=== PATIENT | female | born 1980 | race Caucasian/White ===

== ENCOUNTER 2016-11-29 07:13 | Outpatient (CLI) | payer OTHER | END 2016-11-29 23:59 | DX: Z11.3 Encounter for screening for infections with a predominantly sexual mode of transmission (principal) ==

== ENCOUNTER 2016-12-20 09:59 | Outpatient (CLI) | payer OTHER | END 2016-12-20 10:00 | disposition home or self-care (01) | DX: Z36 Encounter for antenatal screening of mother (principal) ==

== ENCOUNTER 2017-01-24 10:05 | Outpatient (CLI) | payer OTHER ==
[2017-01-31 11:22] LABS: TEST RESULT REPORT (())
== END 2017-01-24 10:06 | disposition home or self-care (01) ==
LOC: LAB 10:05
PROVIDERS: ATTEND Obstetrics & Gynecology
DX: Z36 Encounter for antenatal screening of mother (principal)
CPT/HCPCS: 81511; 81599

== ENCOUNTER 2017-04-05 08:38 | Outpatient (CLI) | payer OTHER ==
[2017-04-05 12:46] LABS: HGB - HEMOGLOBIN 11.7 g/dL (12.0-16.0); MEAN CORPUSCULAR HEMOGLOBIN 28.1 pg (27.0-31.0); MEAN CORPUSCULAR HGB CONC 33.4 g/dL (32.0-36.0); MEAN CORPUSCULAR VOLUME 83.9 fL (81.0-99.0); MEAN PLATELET VOLUME 8.2 fL (7.9-10.8); RED BLOOD COUNT 4.17 10^6/uL (4.20-5.40); RED CELL DISTRIBUTION WIDTH 13.9 % (12.0-15.0); WHITE BLOOD COUNT 8.8 x10^3/uL (4.8-10.8)
== END 2017-04-05 08:39 | disposition home or self-care (01) ==
LOC: LAB.WCP 08:38
PROVIDERS: ATTEND Obstetrics & Gynecology
DX: Z36 Encounter for antenatal screening of mother (principal)
CPT/HCPCS: 82950; 86850

== ENCOUNTER 2017-04-21 12:50 | Outpatient (CLI) | payer OTHER ==
--- NOTE | 2017-04-22 09:46 | Ultrasound Report ---
OB FOLLOWUP: 04/21/2017 CLINICAL INDICATION: Size greater than dates. TECHNIQUE: Real-time scanning was performed with event representative static images obtained. LAST MENSTRUAL PERIOD 10/02/2016 Clinical Age 28 weeks 5 days US Age 31 weeks 0 days EFW [place] 1465 g EFW% [place] 68% Heart Rate 138 bpm EDC 07/09/2017 US EDC 06/23/2017 BPD [place] 32 weeks 3 days; Mean mm 80.7 HC [place] 32 weeks 5 days; Mean mm 295.5 AC [place] 30 weeks 0 days; Mean mm 258.7 FL [place] 28 weeks 1 day; Mean mm 52.9 Presentation cephalic Placental Location anterior Cervical Length 27.1 cm Amniotic Fluid 3.3 cm There is a single viable intrauterine gestation, in cephalic presentation. heart rate is 138 BPM. The placenta is anterior, without evidence of previa. By size, the fetus measures 31 weeks 0 days (28 weeks 5 days by LMP dating). There is polyhydramnios present, with an GIO of 27.1. No free fluid or adnexal lesion is appreciated. IMPRESSION: SINGLE VIABLE INTRAUTERINE GESTATION, MEASURING 2 WEEKS 2 DAYS LARGER THAN EXPECTED BY LMP DATING. POLYHYDRAMNIOS. MTDD
== END 2017-04-21 12:51 | disposition home or self-care (01) ==
LOC: DI 12:50
PROVIDERS: ATTEND Obstetrics & Gynecology
DX: O36.63X0 Maternal care for excessive fetal growth, third trimester, not applicable or unspecified (principal); O40.3XX0 Polyhydramnios, third trimester, not applicable or unspecified
CPT/HCPCS: 76816

== ENCOUNTER 2017-05-23 10:59 | Outpatient (CLI) | payer OTHER ==
[2017-05-23 11:37] LABS: BASOPHILS % (AUTO) 0.3 %; EOSINOPHILS # (AUTO) 0.2 10^3/uL (0.0-0.7); EOSINOPHILS % (AUTO) 2.5 %; HCT - HEMATOCRIT 32.2 % (37.0-47.0); HGB - HEMOGLOBIN 10.7 g/dL (12.0-16.0); LYMPHOCYTES # (AUTO) 1.9 10^3/uL (1.5-3.5); LYMPHOCYTES % (AUTO) 21.5 %; MEAN CORPUSCULAR HEMOGLOBIN 26.9 pg (27.0-31.0); MEAN CORPUSCULAR HGB CONC 33.2 g/dL (32.0-36.0); MEAN CORPUSCULAR VOLUME 81.1 fL (81.0-99.0); MEAN PLATELET VOLUME 7.6 fL (7.9-10.8); MONOCYTES # (AUTO) 0.6 10^3/uL (0.0-1.0); NEUTROPHILS # (AUTO) 6.1 10^3/uL (1.5-6.6); NEUTROPHILS % (AUTO) 68.7 %; RED BLOOD COUNT 3.97 10^6/uL (4.20-5.40); RED CELL DISTRIBUTION WIDTH 13.3 % (12.0-15.0); UNCORRECTED WHITE BLOOD COUNT 8.9 x10^3/uL; WHITE BLOOD COUNT 8.9 x10^3/uL (4.8-10.8)
[2017-05-23 11:56] LABS: CREATININE 0.6 mg/dL (0.4-1.0); URIC ACID 4.4 mg/dL (2.6-7.2)
[2017-05-23 12:26] VITALS: BP 128/76
== END 2017-05-23 12:25 | disposition home or self-care (01) ==
LOC: WFO 10:59 → FBP 11:00 → WFO 12:25
PROVIDERS: ATTEND Obstetrics & Gynecology
DX: O10.913 Unspecified pre-existing hypertension complicating pregnancy, third trimester (principal); Z3A.33 33 weeks gestation of pregnancy
CPT/HCPCS: 36415; 59025; 82565; 82570; 83615; 84156; 84450; 84550; 85025; 85384

== ENCOUNTER 2017-05-30 15:47 | Outpatient (CLI) | payer OTHER ==
[2017-05-30 16:02] VITALS: BP 134/75
== END 2017-05-30 16:25 | disposition home or self-care (01) ==
LOC: WFO 15:47 → FBP 15:47 → WFO 16:25
PROVIDERS: ATTEND Obstetrics & Gynecology
DX: O40.3XX0 Polyhydramnios, third trimester, not applicable or unspecified (principal); Z3A.34 34 weeks gestation of pregnancy
CPT/HCPCS: 59025

== ENCOUNTER 2017-06-06 09:28 | Outpatient (CLI) | payer OTHER ==
[2017-06-06 09:55] VITALS: BP 122/70
[2017-06-06 11:02] LABS: BASOPHILS % (AUTO) 0.4 %; EOSINOPHILS # (AUTO) 0.1 10^3/uL (0.0-0.7); EOSINOPHILS % (AUTO) 1.7 %; HCT - HEMATOCRIT 36.8 % (37.0-47.0); HGB - HEMOGLOBIN 11.8 g/dL (12.0-16.0); LYMPHOCYTES # (AUTO) 1.6 10^3/uL (1.5-3.5); LYMPHOCYTES % (AUTO) 20.8 %; MEAN CORPUSCULAR HEMOGLOBIN 25.6 pg (27.0-31.0); MEAN CORPUSCULAR VOLUME 79.9 fL (81.0-99.0); MEAN PLATELET VOLUME 7.6 fL (7.9-10.8); MONOCYTES # (AUTO) 0.4 10^3/uL (0.0-1.0); MONOCYTES % (AUTO) 4.9 %; NEUTROPHILS # (AUTO) 5.6 10^3/uL (1.5-6.6); NEUTROPHILS % (AUTO) 72.2 %; NUCLEATED RED BLOOD CELLS AUTO 0.1 /100WBC; RED BLOOD COUNT 4.61 10^6/uL (4.20-5.40); RED CELL DISTRIBUTION WIDTH 13.9 % (12.0-15.0); UNCORRECTED WHITE BLOOD COUNT 7.8 x10^3/uL; WHITE BLOOD COUNT 7.8 x10^3/uL (4.8-10.8)
[2017-06-06 11:12] LABS: ALBUMIN/GLOBULIN RATIO 0.7 (1.0-2.2); BILIRUBIN,TOTAL 0.5 mg/dL (0.2-1.0); CALCIUM 8.8 mg/dL (8.5-10.3); CREATININE 0.8 mg/dL (0.4-1.0); POTASSIUM 3.8 mmol/L (3.5-5.0); TOTAL PROTEIN 6.4 g/dL (6.7-8.2); URIC ACID 6.2 mg/dL (2.6-7.2)
[2017-06-06] MEDS ORDERED: ONDANSETRON ODT 4 MG TABLET TL PRN (12:54)
--- NOTE | 2017-06-08 12:26 | Ultrasound Report ---
RIGHT UPPER QUADRANT ULTRASOUND: 06/06/2017 COMPARISON: None. INDICATION: Right upper quadrant pain. TECHNIQUE: Sonographic evaluation of the right upper quadrant--upper abdomen was performed. FINDINGS: The liver appears normal in size and contour without masses. The liver appears normal in echogenicity. Portal venous flow is directed toward the liver. There is no ascites. The common duct is non-dilated with the common duct measuring 3 mm. No gallstones. No gallbladder wall thickening or surrounding fluid. Negative Wells sign. The right kidney is grossly unremarkable. IMPRESSION: NEGATIVE RIGHT UPPER QUADRANT ULTRASOUND. JOB #: [id number] EXT JOB #:[id number]
== END 2017-06-06 15:30 | disposition home or self-care (01) ==
LOC: WFO 09:28 → FBP 09:30 → WFO 15:30
PROVIDERS: ATTEND Obstetrics & Gynecology
DX: O40.3XX0 Polyhydramnios, third trimester, not applicable or unspecified (principal); Z3A.35 35 weeks gestation of pregnancy
CPT/HCPCS: 36415; 59025; 76705; 80053; 82570; 83615; 84156; 84450; 84550; 85025; 85384; Q0162; 99213

== ENCOUNTER 2017-06-15 11:49 | Outpatient (CLI) | payer OTHER | END 2017-06-15 11:50 | disposition home or self-care (01) | LOC: LAB.R 11:49 | PROVIDERS: ATTEND Obstetrics & Gynecology | DX: Z36.9 Encounter for antenatal screening, unspecified (principal) | CPT/HCPCS: 87081 ==

== ENCOUNTER 2017-06-29 15:55 | Inpatient (IN) | payer OTHER ==
[2017-06-29 16:26] LABS: BASOPHILS # (AUTO) 0.1 10^3/uL (0.0-0.1); BASOPHILS % (AUTO) 0.6 %; EOSINOPHILS # (AUTO) 0.2 10^3/uL (0.0-0.7); EOSINOPHILS % (AUTO) 2.3 %; HCT - HEMATOCRIT 32.9 % (37.0-47.0); HGB - HEMOGLOBIN 10.3 g/dL (12.0-16.0); MEAN CORPUSCULAR HEMOGLOBIN 24.5 pg (27.0-31.0); MEAN CORPUSCULAR HGB CONC 31.4 g/dL (32.0-36.0); MEAN PLATELET VOLUME 7.9 fL (7.9-10.8); MONOCYTES # (AUTO) 0.6 10^3/uL (0.0-1.0); MONOCYTES % (AUTO) 5.5 %; NEUTROPHILS # (AUTO) 7.5 10^3/uL (1.5-6.6); NEUTROPHILS % (AUTO) 72.6 %; NUCLEATED RED BLOOD CELLS AUTO 0.1 /100WBC; RED BLOOD COUNT 4.22 10^6/uL (4.20-5.40); RED CELL DISTRIBUTION WIDTH 14.7 % (12.0-15.0); UNCORRECTED WHITE BLOOD COUNT 10.3 x10^3/uL; WHITE BLOOD COUNT 10.3 x10^3/uL (4.8-10.8)
[2017-06-29 16:40] LABS: URIC ACID 6.1 mg/dL (2.6-7.2)
[2017-06-29 17:08] LABS: CREATININE 0.9 mg/dL (0.4-1.0)
[2017-06-29] MEDS ORDERED: SODIUM CHLORIDE FLUSH 0.9% 10 ML SYRINGE IVP ONE ×2 (17:55→18:23)
[2017-06-29] MEDS ORDERED: DINOPROSTONE 10 MG SUPP VG SCH (18:19)
[2017-06-29] MEDS ORDERED: FERRIC GLUCONATE 125 MG in SODIUM CHLORIDE 0.9% 100ML 100 ML IV SCH (19:00)
[2017-06-29] MEDS: LACTATED RINGERS 1,000 ML IV SCH (19:33)
--- NOTE | 2017-06-29 21:48 | HISTORY & PHYSICAL EXAMINATION ---
DATE OF ADMISSION: 06/29/2017 IDENTIFICATION: A 37-year-old G2, P1-0-0-1 with a 38 and 5/7 week intrauterine , EDC is 07/09/2017, consistent with 8-week ultrasound. HISTORY OF PRESENT ILLNESS: The patient presents today to [facility] for a blood pressure check. The patient has been having gestational hypertension and has resolved polyhydramnios that started and resolved in the third trimester. In any event, the patient's blood pressure here in labor and delivery is consistent with an elevated blood pressure in the office. Here in Labor and Delivery they are 145/91, 146/90, 144/90, 142/88, and 138/96. Her laboratories show platelets of 266, creatinine 0.9, AST of 20, and a urine protein creatinine ratio was 0.2. In the face of gestational hypertension with worsening renal tests, I believe it is at this point in time that patient should be delivered for preeclampsia. I discussed with the patient the risks, benefits, alternatives, indications and expectations of cervical ripening and later induction of labor. After all the questions answered to her satisfaction, she verbalized that I proceed with cervical ripening with induction of labor and consent forms have been signed. The patient states that the baby, which is a girl with an anticipated name of Magdalena is moving well and patient denies any vaginal bleeding or loss of fluid. She is experiencing some mild contractions. She was seen at the clinic yesterday with Dr. Cruz who checked her cervix. Her cervix at the time was 1 cm dilated, 25% effaced, and -1 station. NST today is reactive and category 1. The patient is not showing any appreciable contractions on tocometry. She denies any significant headaches, right upper quadrant tenderness, or visual changes. She is accompanied today by her , Max. PAST MEDICAL HISTORY: None. She denies any chronic hypertension, diabetes, or thyroid disorders. PAST SURGICAL HISTORY 1. Appendectomy in 1991. 2. Breast augmentation on 03/17/2016. ALLERGIES: NO KNOWN DRUG ALLERGIES. Her pharmacy of choice is [facility] in [place]. SOCIAL HISTORY: She denies any tobacco, alcohol, or illicit drug use. Her is Max and the patient has a daughter named Claude. This is a female fetus with anticipated name is Magdalena. PAST OBSTETRICAL HISTORY: One term vaginal delivery at 39 weeks' gestation with induction of labor secondary to hypertension. This baby is IVF. This has been remarkable for polyhydramnios at about 29 weeks' gestation. She had an ultrasound ordered for size greater than dates and her amniotic fluid index was 27 cm at that time. There has been spontaneous resolution of her amniotic fluid index. At 37 weeks' gestation, she was found to have an amniotic fluid index of 13.01 cm. The patient has had elevated blood pressures as well during this . At their worst blood pressures were in the 150s over 80s. The patient did have a normal echocardiogram. This was performed secondary to her daughter, Claude having a partial AVSD that was diagnosed at her second week of life. The baby did require surgical repair. PAST GYNECOLOGIC HISTORY: She denies any abnormal Pap smears or sexually transmitted diseases. FAMILY HISTORY: She denies any female carcinoma. REVIEW OF SYSTEMS: Negative unless otherwise stated. She denies any nausea, vomiting, fevers, chills, diarrhea, or constipation. OBJECTIVE VITAL SIGNS: Blood pressure is 138/96, heart rate 93. GENERAL: The patient is a well-developed, well-nourished female in no apparent distress. She is alert and oriented x3. The patient is very pleasant and easy to speak to. HEENT: Within normal limits, the patient is a red head. CARDIOVASCULAR: Rate is regular, no murmurs or rubs. PULMONARY: Lungs clear to auscultation bilaterally. ABDOMEN: Gravid, nontender. Fundal height from yesterday's visit at 40 cm at 38 weeks' gestation. laboratories reveal she is negative for chlamydia and gonorrhea. Her Pap smear was also negative on 11/29/2016. Blood type is A positive with a negative antibody screen. HIV is negative, as well as RPR, hepatitis, and hepatitis B surface antigen negative. She is immune to rubella and her quad screen is normal. Her 1 hour GTT is 116. cfDNA was negative. Placenta was noted to be anterior. GBS is negative. Laboratory results today on 06/29/2017 show a white count of 10.3, hemoglobin and hematocrit of 10.3 and 32.9, platelets 266. Uric acid 6.1, creatinine 0.9, GFR is 70, AST 20. Urine protein to creatinine ratio 0.2. Nonstress test is reactive in category 1. There are no decelerations. No contractions are noted. ASSESSMENT 1. A 37-year-old G2, P1-0-0-1 with a 38 and 5/7 week intrauterine . 2. Chronic hypertension with superimposed preeclampsia. 3. Cervix remote from delivery. PLAN 1. We will proceed to cervical ripening with Cervidil overnight and then hopefully convert to Pitocin tomorrow morning. 2. Expect spontaneous vaginal delivery. 3. Epidural p.r.n. 4. We will give the patient IV ferrous gluconate after delivery. JOB #: [id number] EXT JOB #:[id number] MTDD
[2017-06-29] MEDS: ZOLPIDEM 5 MG TABLET PO PRN (22:23)
[2017-06-30] MEDS: fentaNYL 100 MCG/2 ML VIAL IVP PRN ×2 (05:12→18:57)
[2017-06-30] MEDS: SODIUM CHLORIDE FLUSH 0.9% 10 ML SYRINGE IVP SCH ×3 (05:14→17:23)
[2017-06-30] MEDS ORDERED: ONDANSETRON 4 MG/2 ML VIAL ONE (06:25)
--- NOTE | 2017-06-30 08:20 | PROVIDER PROGRESS NOTE ---
Labor Progress Note - Uterine Monitoring Uterine Monitoring Mode: positive: External toco Contraction Frequency (min/apart): Max Q2 Contraction Intensity: positive: Moderate to strong Uterine Resting Tone: positive: Soft - Monitoring Monitor Mode: positive: External ultrasound Heart Rate Variability: positive: Moderate (6-25 bmp) Accelerations: positive: Present, 15x15 Decelerations: positive: None Strip Review: positive: Category I - Vaginal Exam Dilation (in cm): 1 Effacement (%): 70 Station: -1 - Labor Progress Note Labor Progress Note/Additional Text: 37 yo with a 38w5d IUP Improved cervical change with cervidil overnight Chronic hypertension with superimposed preeclampsia Epidural PRN Zofran PRN Expect S/p Iron transfusion 06/29/2017 for iron deficiency anemia Start pitocin
[2017-06-30] MEDS ORDERED: OXYTOCIN/SODIUM CHLORIDE 250 ML IV SCH (09:00)
--- NOTE | 2017-06-30 12:49 | PROVIDER PROGRESS NOTE ---
Labor Progress Note - Uterine Monitoring Uterine Monitoring Mode: positive: External toco Contraction Frequency (min/apart): Q4 Contraction Intensity: positive: Moderate to strong Uterine Resting Tone: positive: Soft - Monitoring Monitor Mode: positive: External ultrasound Heart Rate Baseline: 130 Heart Rate Variability: positive: Moderate (6-25 bmp) Accelerations: positive: Present, 15x15 Decelerations: positive: None Strip Review: positive: Category I - Labor Progress Note Labor Progress Note/Additional Text: 37 yo with a 38w5d IUP Chronic hypertension with superimposed pre-eclampsia Continue pitocin (8 milliunits/min) Epidural then AROM Expect
[2017-06-30] MEDS: LACTATED RINGERS 1,000 ML IV SCH ×2 (14:09→18:34)
[2017-06-30] MEDS ORDERED: miSOPROStol 100 MCG TABLET BC SCH (15:00)
--- NOTE | 2017-06-30 15:11 | PROVIDER PROGRESS NOTE ---
Labor Progress Note - Uterine Monitoring Contraction Frequency (min/apart): Q4 Contraction Intensity: positive: Moderate to strong Uterine Resting Tone: positive: Soft - Monitoring Monitor Mode: positive: External ultrasound Heart Rate Variability: positive: Moderate (6-25 bmp) Accelerations: positive: Present, 15x15 Decelerations: positive: None Strip Review: positive: Category I - Vaginal Exam Dilation (in cm): 1 Effacement (%): 50 Cervical Position: Posterior - Labor Progress Note Labor Progress Note/Additional Text: No significant change despite pitocin Will give 1 dose of cytotec Stable chronic hypertension with superimposed preeclampsia
[2017-06-30] MEDS: ONDANSETRON 4 MG/2 ML VIAL IVP PRN (17:24)
--- NOTE | 2017-06-30 17:57 | PROVIDER PROGRESS NOTE ---
Labor Progress Note - Uterine Monitoring Uterine Monitoring Mode: positive: External toco Contraction Frequency (min/apart): Q4 Contraction Intensity: positive: Moderate to strong Uterine Resting Tone: positive: Soft - Monitoring Monitor Mode: positive: External ultrasound Heart Rate Variability: positive: Moderate (6-25 bmp) Accelerations: positive: Present, 15x15 Decelerations: positive: None Strip Review: positive: Category I - Labor Progress Note Labor Progress Note/Additional Text: 37 yo with a 38w5d IUP Chronic HTN with superimposed pre-eclampsia, stable Recheck cervix at 19:30 when cytotec done Will decide on next step after cervical exam Expect
[2017-06-30] MEDS: SODIUM CHLORIDE FLUSH 0.9% 10 ML SYRINGE IVP PRN (19:05)
[2017-06-30] MEDS ORDERED: DINOPROSTONE 10 MG SUPP VG SCH (20:07)
--- NOTE | 2017-06-30 20:30 | PROVIDER PROGRESS NOTE ---
Labor Progress Note - Uterine Monitoring Uterine Monitoring Mode: positive: External toco Contraction Frequency (min/apart): Difficult to discern Contraction Intensity: positive: Moderate Uterine Resting Tone: positive: Soft - Monitoring Monitor Mode: positive: External ultrasound Heart Rate Baseline: 110-120's Heart Rate Variability: positive: Moderate (6-25 bmp) Accelerations: positive: Present, 15x15 Decelerations: positive: None Strip Review: positive: Category I - Vaginal Exam Dilation (in cm): 1 (RN exam) Effacement (%): Thick Station: -3 Cervical Position: Posterior - Labor Progress Note Labor Progress Note/Additional Text: 37 yo with a 38w5d IUP Stable chronic HTN with superimposed pre-eclampsia Cervix remote from delivery. Patient frustrated that she hasn't progressed. Reassured patient that both she and the baby are doing well. Will have to be patient and keep on ripening the cervix. Will give cervidil overnight again. Patient OK to go in the jacuzzi prior to dose of cervidil tonight. Epidural PRN Expect
[2017-06-30 21:30] VITALS: BP 110/63
[2017-06-30] MEDS: ZOLPIDEM 5 MG TABLET PO PRN (21:37)
[2017-06-30] MEDS: ACETAMINOPHEN 325 MG TABLET PO PRN (21:37)
[2017-07-01] MEDS: ACETAMINOPHEN 325 MG TABLET PO PRN (02:23)
[2017-07-01] MEDS: SODIUM CHLORIDE FLUSH 0.9% 10 ML SYRINGE IVP SCH ×4 (04:41→11:51)
[2017-07-01] MEDS: ONDANSETRON 4 MG/2 ML VIAL IVP PRN ×3 (05:12→17:03)
[2017-07-01] MEDS: fentaNYL 100 MCG/2 ML VIAL IVP PRN ×4 (06:04→15:07)
[2017-07-01] MEDS: SODIUM CHLORIDE FLUSH 0.9% 10 ML SYRINGE IVP PRN ×4 (09:54→17:06)
--- NOTE | 2017-07-01 11:38 | PROVIDER PROGRESS NOTE ---
Labor Progress Note - Uterine Monitoring Uterine Monitoring Mode: positive: External toco Contraction Frequency (min/apart): few Contraction Intensity: positive: Mild Uterine Resting Tone: positive: Soft - Monitoring Monitor Mode: positive: External ultrasound Heart Rate Baseline: 140 Heart Rate Variability: positive: Moderate (6-25 bmp) Accelerations: positive: Present, 15x15 Decelerations: positive: None Strip Review: positive: Category I - Vaginal Exam Dilation (in cm): 1 Effacement (%): 50 Station: -1 Cervical Position: Posterior (Patient discussed with Dr Rivera. Pt has recieved cytotec, Pitocin, Cervidel with minimal change. Discussed with the patient. Pt relaits that cx responded to ross bulb last time. was very painful. desires repeat bulb dilitation. Plan Ross bulp pit/epidural, then AROM.)
[2017-07-01] MEDS: LACTATED RINGERS 1,000 ML IV SCH (12:04)
--- NOTE | 2017-07-01 16:10 | PROVIDER PROGRESS NOTE ---
Labor Progress Note - Uterine Monitoring Uterine Monitoring Mode: positive: External toco Contraction Frequency (min/apart): 8-10 Contraction Intensity: positive: Mild Uterine Resting Tone: positive: Soft - Monitoring Monitor Mode: positive: External ultrasound Heart Rate Baseline: 120 Heart Rate Variability: positive: Moderate (6-25 bmp) Accelerations: positive: Present, 15x15 Decelerations: positive: None Strip Review: positive: Category I - Vaginal Exam Dilation (in cm): 3 Effacement (%): long Station: Ballotable Cervical Position: Posterior (Luis out. Head out of the pelvis. Cervix not responding. folye may be pushing the head up. reviewed with the ptSeema Alatorre for relaxation. Cervdel tonight. Indusction in the AM if favorable. if not rest and retutn Tuesday)
[2017-07-01] MEDS ORDERED: DINOPROSTONE 10 MG SUPP VG ONE (16:17)
[2017-07-01] MEDS: ZOLPIDEM 5 MG TABLET PO PRN (20:50)
[2017-07-02] MEDS: SODIUM CHLORIDE FLUSH 0.9% 10 ML SYRINGE IVP PRN (00:35)
[2017-07-02] MEDS: ONDANSETRON 4 MG/2 ML VIAL IVP PRN (01:02)
[2017-07-02] MEDS: LACTATED RINGERS 1,000 ML IV SCH (01:07)
[2017-07-02] MEDS ORDERED: PROMETHAZINE INJ 25 MG in SODIUM CHLORIDE 0.9% 50 ML IV PRN (01:16)
--- NOTE | 2017-07-02 01:26 | PROVIDER PROGRESS NOTE ---
Labor Progress Note - Uterine Monitoring Uterine Monitoring Mode: positive: External toco Contraction Frequency (min/apart): 10 Contraction Intensity: positive: Mild to moderate Uterine Resting Tone: positive: Soft - Monitoring Monitor Mode: positive: External ultrasound Heart Rate Baseline: 120 Heart Rate Variability: positive: Minimal (0-5 bpm) Accelerations: positive: Present, 15x15 Decelerations: positive: None Strip Review: positive: Category I - Labor Progress Note Labor Progress Note/Additional Text: Pt is having difficulty wit emotional liability. she hasn't had a good sleep for the last 3 days. BP has been 120/80's. DTR 3+ . No JACOBS. Removed cerevidel. will allow Pt to sleep
[2017-07-02] MEDS ORDERED: PROMETHAZINE 25 MG/1 ML VIAL ONE (01:38)
[2017-07-02 06:17] LABS: BASOPHILS % (AUTO) 0.4 %; EOSINOPHILS # (AUTO) 0.1 10^3/uL (0.0-0.7); HGB - HEMOGLOBIN 8.9 g/dL (12.0-16.0); LYMPHOCYTES # (AUTO) 1.7 10^3/uL (1.5-3.5); LYMPHOCYTES % (AUTO) 23.5 %; MEAN CORPUSCULAR HEMOGLOBIN 24.8 pg (27.0-31.0); MEAN CORPUSCULAR HGB CONC 31.6 g/dL (32.0-36.0); MEAN CORPUSCULAR VOLUME 78.4 fL (81.0-99.0); MONOCYTES # (AUTO) 0.5 10^3/uL (0.0-1.0); MONOCYTES % (AUTO) 6.4 %; NEUTROPHILS # (AUTO) 4.9 10^3/uL (1.5-6.6); NEUTROPHILS % (AUTO) 67.7 %; NUCLEATED RED BLOOD CELLS AUTO 0.2 /100WBC; RED BLOOD COUNT 3.57 10^6/uL (4.20-5.40); RED CELL DISTRIBUTION WIDTH 14.6 % (12.0-15.0); UNCORRECTED WHITE BLOOD COUNT 7.2 x10^3/uL; WHITE BLOOD COUNT 7.2 x10^3/uL (4.8-10.8)
[2017-07-02 06:35] LABS: CREATININE 0.9 mg/dL (0.4-1.0); GFR - MDRD 70 (>89); URIC ACID 7.2 mg/dL (2.6-7.2)
--- NOTE | 2017-07-02 08:34 | PROVIDER PROGRESS NOTE ---
Labor Progress Note - Uterine Monitoring Uterine Monitoring Mode: positive: External toco Contraction Frequency (min/apart): 10 Contraction Intensity: positive: Mild Uterine Resting Tone: positive: Soft Other Uterine Monitoring: Uterus is nontender - Monitoring Monitor Mode: positive: External ultrasound Heart Rate Baseline: 140 Heart Rate Variability: positive: Moderate (6-25 bmp) Accelerations: positive: Present, 15x15 Decelerations: positive: None Strip Review: positive: Category I - Vaginal Exam Dilation (in cm): 3 Effacement (%): 25 Station: Ballotable Cervical Position: Posterior - Labor Progress Note Labor Progress Note/Additional Text: Pt rested some last PM. spirits improved.
--- NOTE | 2017-07-02 08:37 | PROVIDER PROGRESS NOTE ---
Subjective - Prog Note Date Prog Note Date: 07/02/17 Prog Note Time: 08:35 - Subjective Pt reports feeling: Improved (Pt denysHA or scotoma. Notes good FM. Slept last night folllowing phenergan.) Objective - Vital Signs/Intake & Output Reviewed Vital Signs: Yes Vital Signs: BP 120-30/70-80. Intake & Output: Intake & Output 06/29/17 06/30/17 07/01/17 07/02/17 23:59 23:59 23:59 23:59 Intake Total 488.324 2178 1000 651 Output Total 1150 900 450 Balance 376.667 350 100 201 - Objective General Appearance: positive: No acute distress, Alert Respiratory: positive: Chest non-tender, No respiratory distress, Breath sounds nml Cardiovascular: positive: Regular rate & rhythm, No murmur Abdomen: positive: Non-tender, No organomegaly, Nml bowel sounds, Mass (uterus) Back: negative: CVA tenderness (R), CVA tenderness (L) Skin: positive: Color nml, No rash, Warm Extremities: positive: Pedal edema (3+). negative: Calf tenderness, Joint swelling, Crescencio's sign/cords Neurologic/Psychiatric: positive: Oriented x3, CN's nml (2-12), Motor nml Reflexes: Knee (R): 3+ (no Clonus), Knee (L): 3+ (no Clonus) - Lab Results Fish Bones: 07/02/17 06:00 07/02/17 06:00 Other Labs: Lab Results x24hrs 07/02/17 07/02/17 07/02/17 Range/Units 06:00 06:00 06:00 WBC (4.8-10.8) x10^3/uL RBC (4.20-5.40) 10^6/uL Hgb (12.0-16.0) g/dL Hct (37.0-47.0) % MCV (81.0-99.0) fL MCH (27.0-31.0) pg MCHC (32.0-36.0) g/dL RDW (12.0-15.0) % Plt Count (130-450) 10^3/uL MPV (7.9-10.8) fL Neut # (1.5-6.6) 10^3/uL Lymph # (1.5-3.5) 10^3/uL [place] # (0.0-1.0) 10^3/uL Eos # (0.0-0.7) 10^3/uL Baso # (0.0-0.1) 10^3/uL Absolute Nucleated RBC x10^3/uL Nucleated RBC % /100WBC Fibrinogen 505 H (220-496) mg/dL Creatinine 0.9 (0.4-1.0) mg/dL Estimated GFR (MDRD) 70 L (>89) Uric Acid 7.2 (2.6-7.2) mg/dL AST 17 (10-42) IU/L ALT < 10 L (10-60) IU/L Lactate Dehydrogenase 138 (91-225) IU/L 07/02/17 Range/Units 06:00 WBC 7.2 (4.8-10.8) x10^3/uL RBC 3.57 L (4.20-5.40) 10^6/uL Hgb 8.9 L (12.0-16.0) g/dL Hct 28.0 L (37.0-47.0) % MCV 78.4 L (81.0-99.0) fL MCH 24.8 L (27.0-31.0) pg MCHC 31.6 L (32.0-36.0) g/dL RDW 14.6 (12.0-15.0) % Plt Count 218 (130-450) 10^3/uL MPV 8.0 (7.9-10.8) fL Neut # 4.9 (1.5-6.6) 10^3/uL Lymph # 1.7 (1.5-3.5) 10^3/uL [place] # 0.5 (0.0-1.0) 10^3/uL Eos # 0.1 (0.0-0.7) 10^3/uL Baso # 0.0 (0.0-0.1) 10^3/uL Absolute Nucleated RBC 0.01 x10^3/uL Nucleated RBC % 0.2 /100WBC Fibrinogen (220-496) mg/dL Creatinine (0.4-1.0) mg/dL Estimated GFR (MDRD) (>89) Uric Acid (2.6-7.2) mg/dL AST (10-42) IU/L ALT (10-60) IU/L Lactate Dehydrogenase (91-225) IU/L Assessment/Plan - Problem List (1) Gestational [-induced] hypertension without significant proteinuria , complicating childbirth Impression: BP have normalized. She has failed Cervidel X3, Folwy bulb, and pitocin. Last night following 3 nights with sleep and minimal cervical changes Pt emotionally decompensated. Pt appears to be stable. will allow to go home for much needed rest. Pt will return tuesday for reevaluation. Pt cautioned to return earlier if develops JACOBS Visual changes.
[2017-07-02] MEDS ORDERED: ZOLPIDEM 5 MG TABLET PO SCH (09:00)
--- NOTE | 2017-07-26 09:00 | DISCHARGE SUMMARY ---
ADMITTING DIAGNOSES 1. A 37-year-old G2, P1. 2. A 38.5 weeks. 3. Chronic hypertension with superimposed preeclampsia. DISCHARGE DIAGNOSES 1. A 37-year-old G2, P1. 2. A 38.5 weeks. 3. Chronic hypertension with superimposed preeclampsia. 4. Failed induction. PROCEDURE 1. Cervical ripening. 2. Pitocin. 3. Saline cervical catheter. PRESENTING HISTORY: The patient is a 37-year-old G2, P1-0-0-1 female who was 38 /7. She had been followed through her with concerns about chronic hypertension. She developed labile hypertension in the clinic and was presented for cervical ripening and induction. Her history is positive for polyhydramnios , which resolved during the . The last pelvic exam performed in the clinic showed her cervix to be 1 cm, 25% effaced and -1. LABORATORIES: On admission, white count was 10.3, hemoglobin 10.3, hematocrit was 32.9, and platelets were 266. Uric acid was 6.1 and her creatinine ratio was 0.2. On the , prior to discharge, her white count was 7.2, hemoglobin was 8.9, hematocrit was 28.0, and platelets were 218. Uric acid had risen to 7.2. Her AST and ALT both remained within normal limits. HOSPITAL COURSE: The patient was admitted and had a Cervidil for cervical ripening which produced marginal results. She was started on Pitocin, which did not bring her cervix any farther. This was stopped and so a Luis bulb was placed for cervical dilatation. This got her to about 3-4 cm, but at this point , the head was very high. Bulb of the catheter did come out, but the head was noted to be out of the pelvis at this time. She was given a Jacuzzi for relaxation. On the , in the morning, she was having difficulty with being emotionally upset and that she was not showing any progress, she had not had any good sleep for the last 3 days. Her blood pressures had remained normal at this particular time. Encourage the patient to sleep. She was given medication for this. Patient was seen at 8 o'clock, her blood pressures were all normal. Her cervix was only 3 cm, 25% effaced and head was only ballotable. It was felt to be best to give the patient a rest and allow her to go home and reinitiate an induction on the following Tuesday. She was given cautions should she develop headaches, a lot of swelling or other signs of preeclampsia, that she should present sooner. MAURY
== END 2017-07-02 09:20 | disposition home or self-care (01) | DRG 781 ==
LOC: WFO 15:55 → FBP 15:58 → WFO 17:24 → FBP 17:25 → OBSVTOIN 06-30 08:21
PROVIDERS: ADMIT Obstetrics & Gynecology; ATTEND Obstetrics & Gynecology
PROC: 3E033VJ Introduction of Other Hormone into Peripheral Vein, Percutaneous Approach (ICD-10-PCS; principal; 2017-06-30)
DX: O14.93 Unspecified pre-eclampsia, third trimester (principal); O61.0 Failed medical induction of labor; O61.1 Failed instrumental induction of labor; O99.013 Anemia complicating pregnancy, third trimester; D50.9 Iron deficiency anemia, unspecified; Z3A.38 38 weeks gestation of pregnancy; Z82.79 Family history of other congenital malformations, deformations and chromosomal abnormalities
CPT/HCPCS: 36415; 59025; 59200; 82565; 82570; 83615; 84156; 84450; 84460; 84550; 85025; 85384; 96365; 96375

== ENCOUNTER 2017-07-03 08:12 | Inpatient (IN) | payer OTHER ==
[2017-07-03 09:01] LABS: BASOPHILS # (AUTO) 0.1 10^3/uL (0.0-0.1); BASOPHILS % (AUTO) 0.6 %; EOSINOPHILS # (AUTO) 0.2 10^3/uL (0.0-0.7); EOSINOPHILS % (AUTO) 2.1 %; HCT - HEMATOCRIT 30.6 % (37.0-47.0); HGB - HEMOGLOBIN 9.9 g/dL (12.0-16.0); LYMPHOCYTES # (AUTO) 1.7 10^3/uL (1.5-3.5); LYMPHOCYTES % (AUTO) 18.1 %; MEAN CORPUSCULAR HEMOGLOBIN 25.4 pg (27.0-31.0); MEAN CORPUSCULAR HGB CONC 32.4 g/dL (32.0-36.0); MEAN CORPUSCULAR VOLUME 78.4 fL (81.0-99.0); MEAN PLATELET VOLUME 7.9 fL (7.9-10.8); MONOCYTES # (AUTO) 0.6 10^3/uL (0.0-1.0); MONOCYTES % (AUTO) 6.2 %; NEUTROPHILS # (AUTO) 6.8 10^3/uL (1.5-6.6); NUCLEATED RED BLOOD CELLS AUTO 0.1 /100WBC; RED BLOOD COUNT 3.91 10^6/uL (4.20-5.40); RED CELL DISTRIBUTION WIDTH 14.7 % (12.0-15.0); UNCORRECTED WHITE BLOOD COUNT 9.3 x10^3/uL; WHITE BLOOD COUNT 9.3 x10^3/uL (4.8-10.8)
[2017-07-03 09:09] LABS: URIC ACID 6.4 mg/dL (2.6-7.2)
[2017-07-03] MEDS ORDERED: SODIUM CHLORIDE FLUSH 0.9% 10 ML SYRINGE IVP PRN (10:07)
[2017-07-03] MEDS ORDERED: fentaNYL 100 MCG/2 ML VIAL IVP PRN (10:31)
--- NOTE | 2017-07-03 10:49 | HISTORY & PHYSICAL EXAMINATION ---
Admit History - Instructions [place]/Slash: -Left hand click circles element as positive or present. -Right hand click slashes element as negative or not present. - Visit Reason Visit Reason: Other (Gestational Hypertension, 39.1, Cervical ripening with induction. Pt was admited for cervical ripening 06/29/17. Was tried with Cytotec, Cervidel X 3, Luis and Pit without success. She was given yesterday off and returned for serial induction. Discussed options Cx is still . Luis placed 70cc uterine and 40 vagianl. will consider cytotec oral later.) - : 2 Parity: 1 Premature: 0 Ectopic: 0 : 0 Care: positive: [facility] Risk/History: positive: induced HTN, Labor induction Complications This : positive: induced HTN Smoking Status: Never smoker - Mother's Labs Mother's Blood Type: positive: A Mother's RH: positive: Positive GBS: positive: Group B Step Negative Rubella Status: positive: Immune Meds/Allgy - Home Medications Home Medications: Ambulatory Orders Medication Instructions Recorded Confirmed Ondansetron Odt [Zofran Odt] 4 mg PO Q6H PRN 07/01/17 07/01/17 - Allergies Allergies/Adverse Reactions: Allergies Allergy/AdvReac Type Severity Reaction Status Date / Time No Known Drug Allergies Allergy Verified 06/20/17 10:02 Physical - Abdominal Exam Vital Signs: Temp Pulse Resp BP Pulse Ox 37.0 C 79 17 146/89 H 98 07/03/17 08:56 07/03/17 08:56 07/03/17 08:56 07/03/17 08:56 07/03/17 08:56
[2017-07-03] MEDS: LACTATED RINGERS 1,000 ML IV SCH ×4 (12:32→21:03)
[2017-07-03] MEDS: ACETAMINOPHEN 325 MG TABLET PO SCH (13:15)
--- NOTE | 2017-07-03 14:28 | PROVIDER PROGRESS NOTE ---
Labor Progress Note - Uterine Monitoring Uterine Monitoring Mode: positive: External toco Contraction Frequency (min/apart): none Uterine Resting Tone: positive: Soft - Monitoring Monitor Mode: positive: External ultrasound Heart Rate Baseline: 130 Heart Rate Variability: positive: Moderate (6-25 bmp) Accelerations: positive: Present, 15x15 Decelerations: positive: None Strip Review: positive: Category I - Vaginal Exam Dilation (in cm): 5.5 Effacement (%): 50% Station: Ballotable Cervical Position: Posterior - Labor Progress Note Labor Progress Note/Additional Text: Lusi bulb came out. Pt is pain free. Will start Pit. Epidural PRN. AROM when in range.
[2017-07-03] MEDS: ONDANSETRON 4 MG/2 ML VIAL IVP PRN ×2 (14:30→18:14)
[2017-07-03] MEDS: SODIUM CHLORIDE FLUSH 0.9% 10 ML SYRINGE IVP SCH (14:31)
[2017-07-03] MEDS ORDERED: SODIUM CHLORIDE FLUSH 0.9% 10 ML SYRINGE IVP ONE (14:45)
[2017-07-03] MEDS: OXYTOCIN/SODIUM CHLORIDE 250 ML IV SCH (15:37)
[2017-07-03] MEDS ORDERED: fent/BUPIV 2 MCG/0.125% 250 ML EP ONE (18:39)
--- NOTE | 2017-07-03 19:54 | PROVIDER PROGRESS NOTE ---
Labor Progress Note - Uterine Monitoring : 2-6 Contraction Intensity: positive: Moderate Uterine Resting Tone: positive: Soft - Monitoring Monitor Mode: positive: External ultrasound Heart Rate Baseline: 120 Heart Rate Variability: positive: Moderate (6-25 bmp) Accelerations: positive: Present, 15x15 Decelerations: positive: None Strip Review: positive: Category I - Vaginal Exam Dilation (in cm): 6 Effacement (%): 50 Station: -3 Cervical Position: Posterior - Labor Progress Note Labor Progress Note/Additional Text: Epidural placed with good results. Pit at 8, will increase by 2's.
[2017-07-03] MEDS ORDERED: OXYTOCIN 10 UNIT/ML VIAL IV ONE (20:00)
[2017-07-03] MEDS ORDERED: MORPHINE PF 5 MG/10 ML AMP EP ONE (20:00)
[2017-07-03] MEDS ORDERED: fentaNYL 100 MCG/2 ML VIAL IVP ONE (20:00)
[2017-07-03] MEDS ORDERED: ROPIVACAINE 0.2% PF 10 ML VIAL EPI ONE (20:00)
[2017-07-03] MEDS ORDERED: KETAMINE 500 MG/10 ML VIAL IVP ONE (20:00)
[2017-07-03] MEDS ORDERED: NALOXONE 0.4 MG/ML VIAL IVP PRN (20:13)
[2017-07-03] MEDS ORDERED: ePHEDrine 50 MG/ML VIAL IVP PRN (20:13)
[2017-07-03] MEDS ORDERED: diphenhydrAMINE INJ 50 MG/ML VIAL IVP PRN (20:13)
[2017-07-03] MEDS ORDERED: LACTATED RINGERS 500 ML IV SCH (20:13)
[2017-07-03] MEDS ORDERED: fent/BUPIV 2 MCG/0.125% 250 ML EP PRN (20:13)
[2017-07-03] MEDS ORDERED: NALBUPHINE 20 MG/ML AMP IVP PRN (20:13)
[2017-07-03] MEDS: METOCLOPRAMIDE 10 MG/2 ML VIAL IVP PRN (20:56)
--- NOTE | 2017-07-03 21:53 | PROVIDER PROGRESS NOTE ---
Labor Progress Note - Uterine Monitoring Uterine Monitoring Mode: positive: External toco : 3-4 Contraction Intensity: positive: Moderate Uterine Resting Tone: positive: Soft - Monitoring Monitor Mode: positive: External ultrasound Heart Rate Baseline: 125 Heart Rate Variability: positive: Moderate (6-25 bmp) Accelerations: positive: Present, 15x15 Decelerations: positive: None Strip Review: positive: Category I - Vaginal Exam Dilation (in cm): 6 Effacement (%): 50 Station: Ballotable Cervical Position: Posterior - Labor Progress Note Labor Progress Note/Additional Text: Contractions increasing in frequency. Pit at 16. not able to AROM.
--- NOTE | 2017-07-04 00:11 | PROVIDER PROGRESS NOTE ---
Labor Progress Note - Uterine Monitoring Uterine Monitoring Mode: positive: External toco : 3 Contraction Intensity: positive: Moderate Uterine Resting Tone: positive: Soft - Monitoring Monitor Mode: positive: External ultrasound Heart Rate Baseline: 120 Heart Rate Variability: positive: Moderate (6-25 bmp) Accelerations: positive: Present, 15x15 Decelerations: positive: None Strip Review: positive: Category I - Vaginal Exam Dilation (in cm): 7 Effacement (%): 50 Station: -3 Cervical Position: Midposition - Labor Progress Note Labor Progress Note/Additional Text: Slow progress. Pit at 20. head coming down slowly. Await AROM
[2017-07-04] MEDS: ONDANSETRON 4 MG/2 ML VIAL IVP PRN ×2 (01:59→02:30)
[2017-07-04] MEDS: METOCLOPRAMIDE 10 MG/2 ML VIAL IVP PRN (02:07)
[2017-07-04] MEDS ORDERED: ONDANSETRON 4 MG/2 ML VIAL IVP SCH (02:32)
[2017-07-04] MEDS ORDERED: ONDANSETRON 4 MG/2 ML VIAL IVP PRN (02:35)
--- NOTE | 2017-07-04 02:37 | PROVIDER PROGRESS NOTE ---
Labor Progress Note - Uterine Monitoring Contraction Frequency (min/apart): 3 Contraction Intensity: positive: Moderate Uterine Resting Tone: positive: Soft - Monitoring Monitor Mode: positive: External ultrasound Heart Rate Baseline: 120 Heart Rate Variability: positive: Moderate (6-25 bmp) Accelerations: positive: Present, 15x15 Decelerations: positive: None Strip Review: positive: Category I - Vaginal Exam Dilation (in cm): 6-7 Effacement (%): 50 Station: Ballotable Cervical Position: Posterior - Labor Progress Note Labor Progress Note/Additional Text: head not applied to the Cx. Not safe to rupture at this time. Optomized Pain, Power, Passanger, Pelvis. If no progress in 2 hours will consider C/S.
[2017-07-04] MEDS: LACTATED RINGERS 1,000 ML IV SCH ×2 (03:17→13:28)
[2017-07-04] MEDS ORDERED: CITRIC ACID/SODIUM CITRATE 15 ML UDC PO SCH (05:18)
--- NOTE | 2017-07-04 05:36 | PROVIDER PROGRESS NOTE ---
Labor Progress Note - Uterine Monitoring : 3 Contraction Intensity: positive: Moderate Uterine Resting Tone: positive: Soft - Monitoring Monitor Mode: positive: External ultrasound Heart Rate Baseline: 120 Heart Rate Variability: positive: Minimal (0-5 bpm) Accelerations: positive: Present, 15x15 Decelerations: positive: None Strip Review: positive: Category I - Vaginal Exam Dilation (in cm): 7 Effacement (%): 50 Station: Ballotable Cervical Position: Posterior - Labor Progress Note Labor Progress Note/Additional Text: in the past 5 hours there has been no progress. Pain, power, passage have all been optimized. baby is doing well. Will procede to C/Section. R&B explained. Pt wants Tubal ligation. Pt understands this is irreversible, failuer 3-12/999.
[2017-07-04] MEDS ORDERED: ceFAZolin 3 GM/20 ML SYRINGE IVP SCH (06:00)
[2017-07-04] MEDS ORDERED: LACTATED RINGERS 500 ML IV ONE (06:26)
[2017-07-04] MEDS ORDERED: LACTATED RINGERS 1,000 ML IV ONE ×2 (07:13→08:42)
[2017-07-04] MEDS ORDERED: BUPIVACAINE 0.25% PF 30 ML VIAL SUBQ ONE (07:46)
[2017-07-04] MEDS ORDERED: FERRIC GLUCONATE 125 MG in SODIUM CHLORIDE 0.9% 100ML 100 ML IV ONE (08:42)
[2017-07-04] MEDS ORDERED: SODIUM CHLORIDE FLUSH 0.9% 10 ML SYRINGE IVP PRN (08:42)
--- NOTE | 2017-07-04 08:50 | OPERATIVE REPORT ---
Operative Report - General Admit Date: 07/03/17 Procedure Date: 07/04/17 Planned Procedure: PLTC/S with bilateral Salpingectomy Pre-Op Diagnosis: Tern Cyesis, GHTN, Arrest of Decent Procedure Performed: PLTC/S with bilateral salpingectomy Post Op Diagnosis: Same OP - Procedure Note Primary Surgeon: Desmond Secondary Surgeon: Sofy Anesthesia Provider: Mariluz Anesthesia Technique: Epidural IV Fluids (mL): 2,000 Estimated Blood Loss (mL): 1,000 Urine Output (mL): 100 Complications: none - Other Other Information/Narrative: Bandolear cord
[2017-07-04] MEDS: OXYTOCIN/SODIUM CHLORIDE 250 ML IV SCH (08:58)
[2017-07-04] MEDS: KETOROLAC 30 MG/ML VIAL IV SCH ×3 (09:34→22:00)
[2017-07-04] MEDS: diphenhydrAMINE 25 MG CAPSULE PO PRN ×2 (10:53→19:42)
[2017-07-04] MEDS: ACETAMINOPHEN 500 MG TABLET PO SCH ×2 (10:53→18:56)
[2017-07-04] MEDS: DOCUSATE SODIUM 100 MG CAPSULE PO SCH ×2 (10:54→19:42)
[2017-07-04] MEDS: SODIUM CHLORIDE FLUSH 0.9% 10 ML SYRINGE IVP SCH ×5 (11:51→22:50)
[2017-07-04] MEDS: SIMETHICONE CHEW 80 MG TABLET PO SCH ×2 (14:19→19:42)
[2017-07-04] MEDS: ACETAMINOPHEN 325 MG TABLET PO SCH ×4 (14:29→15:31)
--- NOTE | 2017-07-04 17:14 | OPERATIVE REPORT ---
DATE OF SURGERY: 07/04/2017 00:00:00 PREOPERATIVE DIAGNOSIS: 1. Term cyesis. 2. Gestational hypertension. 3. Arrest of descent. 4. Undesired fertility. POSTOPERATIVE DIAGNOSIS: 1. Term cyesis. 2. Gestational hypertension. 3. Arrest of descent. 4. Undesired fertility. 5. Occiput posterior and bandolier cord. Occiput posterior and bandolier cord. NAME OF PROCEDURE: Primary low transverse section with bilateral salpingectomy. SURGEON: Camacho Logan MD SKEIN WINDER: ANGEL Harden CNM ANESTHESIA: Epidural anesthesia. FINDINGS: Live female , vertex presentation, occiput posterior. Apgars 9 and 9, weighing 8 pounds 5 ounces, clear amniotic fluid, normal tubes and ovaries. ESTIMATED BLOOD LOSS: 1000 mL. IV FLUIDS: 2000 mL. URINE OUTPUT: 100. COMPLICATIONS: None. Bandolier cord. PROCEDURE: Following adequate epidural anesthesia, the patient was placed in the supine position with a roll under the right hip. A Luis catheter had already been placed while she was in labor. She was then prepped and draped in the usual fashion. At this point, a time-out was performed, at which time the concerns about possibly post- atony were raised. The procedure was commenced. A Pfannenstiel incision was carried down through the subcutaneous tissue to the fascia. The fascia was incised transversely. Then using both blunt and sharp dissection, it was freed from the rectus abdominis and pyramidalis. The rectus was then split along the midline, and the peritoneum was entered high. Care was taken to avoid any injury to bowel or bladder. A bladder retractor was placed and a bladder flap was developed using Metzenbaum scissors. At this point, a low transverse uterine incision was accomplished using a #10 blade and bandage scissors. The membranes were finally ruptured and the incision was carried laterally with the finger-spread technique. The head of the infant was lifted out of the pelvis. A lot of amniotic fluid was encountered at this time. The oropharynx and nasopharynx were bulb suctioned. The remainder of the was delivered without difficulty. The cord was doubly clamped, divided, and the infant was handed to the ent consultant who was standing by. Cord blood samples were obtained. Following this, the placenta was manually removed. The uterus was exteriorized, wrapped in a moist lap and cleansed in the internal portion with a dry lap. Care was taken to remove as much of the membranes as possible. The incision was then closed using a running locking suture of #0 Vicryl with an imbricating layer of #0 Vicryl. There was evidence of some bleeding, so a second imbricating layer was placed and then a [id number] was placed in the right cornu. The incision was inspected. No further bleeding was noted. The cul-de-sac was then irrigated of all clot and fluid. The fallopian tube was grasped on the right-hand side with [place], and the LigaSure was used to cauterize and transect the tube. Care was taken to do this as close to the fallopian tube as possible to minimize any risk of injury to the ovarian vessels. This was carried all the way to the cornu. The contralateral tube was treated in identical fashion. Both of these incision sites were inspected. No bleeding was noted. The uterus was placed back in the abdominal cavity. At this point, the incision was inspected for bleeding; none was noted. The gutters were bilaterally irrigated of all clots. The incision was once again reinspected and no bleeding was noted. The peritoneum was closed utilizing 2-0 Vicryl. The rectus was inspected for bleeding. Electrocautery was used for hemostasis. This was irrigated. The fascia was then closed using a looped 0 PDS. Subcutaneous tissue was then closed utilizing 2-0 Vicryl. The incision itself was closed using subcuticular 4-0 Monocryl with Mastisol and Steri-Strips being placed. Because of some ooze, a wound VAC was placed without difficulty. Good suction was observed. The patient tolerated the procedure well and was taken to Recovery in stable condition. JOB #: [id number] EXT JOB #:[id number] [facility]
[2017-07-05] MEDS: ACETAMINOPHEN 325 MG TABLET PO SCH ×4 (00:32→12:38)
[2017-07-05] MEDS: ACETAMINOPHEN 500 MG TABLET PO SCH ×4 (03:23→19:50)
[2017-07-05] MEDS: KETOROLAC 30 MG/ML VIAL IV SCH (03:23)
[2017-07-05] MEDS: SODIUM CHLORIDE FLUSH 0.9% 10 ML SYRINGE IVP SCH ×5 (03:30→16:24)
[2017-07-05 06:11] LABS: BASOPHILS % (AUTO) 0.4 %; EOSINOPHILS # (AUTO) 0.1 10^3/uL (0.0-0.7); EOSINOPHILS % (AUTO) 1.2 %; HCT - HEMATOCRIT 25.2 % (37.0-47.0); LYMPHOCYTES # (AUTO) 1.5 10^3/uL (1.5-3.5); LYMPHOCYTES % (AUTO) 20.5 %; MEAN CORPUSCULAR HEMOGLOBIN 25.1 pg (27.0-31.0); MEAN CORPUSCULAR HGB CONC 31.9 g/dL (32.0-36.0); MEAN CORPUSCULAR VOLUME 78.7 fL (81.0-99.0); MEAN PLATELET VOLUME 8.2 fL (7.9-10.8); MONOCYTES # (AUTO) 0.4 10^3/uL (0.0-1.0); MONOCYTES % (AUTO) 5.4 %; NEUTROPHILS # (AUTO) 5.4 10^3/uL (1.5-6.6); NEUTROPHILS % (AUTO) 72.5 %; NUCLEATED RED BLOOD CELLS AUTO 0.1 /100WBC; UNCORRECTED WHITE BLOOD COUNT 7.4 x10^3/uL; WHITE BLOOD COUNT 7.4 x10^3/uL (4.8-10.8)
[2017-07-05] MEDS: SIMETHICONE CHEW 80 MG TABLET PO SCH ×3 (06:27→17:29)
--- NOTE | 2017-07-05 08:45 | PROVIDER PROGRESS NOTE ---
Subjective - General Admit Date: 07/03/17 Procedure Date: 07/04/17 Post Op Days: 1 Procedure Performed: PLTC/S bilateral Salpingectomy - Review of Systems Wound/Incisions: positive: Dressing dry and intact General: positive: No symptoms (Pain 3-6/10. pt is conceerned about Narcotics and constipation.) Gastrointestinal: positive: Flatus. negative: Nausea, Vomiting Genitourinary: positive: No symptoms (voiding) Objective - Patient Data Reviewed Vital Signs: Yes Vital Signs: Vital Signs x48h Temp Pulse Resp BP 07/05/17 03:30 36.8 C 82 16 127/74 Weight: Weight 07/03/17 07/04/17 07/05/17 23:59 23:59 23:59 Weight (kg) 118.569 kg Intake & Output: Intake and Output Totals x24h 07/03/17 07/04/17 07/05/17 23:59 23:59 23:59 Intake Total 950 3691.667 325 Output Total 437 940 5564 Balance 350 3041.667 -1650 - Lab Results Lab Results: 07/05/17 05:40 Other Lab Results: Lab Results x24hrs 07/05/17 Range/Units 05:40 WBC 7.4 (4.8-10.8) x10^3/uL RBC 3.20 L (4.20-5.40) 10^6/uL Hgb 8.0 L (12.0-16.0) g/dL Hct 25.2 L (37.0-47.0) % MCV 78.7 L (81.0-99.0) fL MCH 25.1 L (27.0-31.0) pg MCHC 31.9 L (32.0-36.0) g/dL RDW 15.0 (12.0-15.0) % Plt Count 195 (130-450) 10^3/uL MPV 8.2 (7.9-10.8) fL Neut # 5.4 (1.5-6.6) 10^3/uL Lymph # 1.5 (1.5-3.5) 10^3/uL [place] # 0.4 (0.0-1.0) 10^3/uL Eos # 0.1 (0.0-0.7) 10^3/uL Baso # 0.0 (0.0-0.1) 10^3/uL Absolute Nucleated RBC 0.01 x10^3/uL Nucleated RBC % 0.1 /100WBC - Current Medications Current Medications: Current Medications Generic Name Dose Route Start Last Admin Trade Name Freq PRN Reason Stop Dose Admin Acetaminophen 650 mg 07/03/17 11:00 07/05/17 00:32 Tylenol PO Not Given Q6H FEDERICA Acetaminophen 1,000 mg 07/04/17 09:00 07/05/17 03:23 Tylenol PO 1,000 mg Q8H FEDERICA Administration Diphenhydramine HCl 25 mg 07/04/17 08:42 07/04/17 19:42 Benadryl PO 25 mg Q6H PRN Administration ITCHING Docusate Sodium 100 mg 07/04/17 09:00 07/04/17 19:42 Colace 100mg Capsule PO 100 mg BID FEDERICA Administration Fentanyl 50 mcg 07/03/17 10:31 07/03/17 13:01 Fentanyl IVP 50 mcg Q1H PRN Administration PAIN Oxytocin/Sodium Chloride 250 mls @ 1 mls/hr 07/03/17 16:00 07/04/17 11:52 Pitocin/Sodium Chloride IV Infused TITR FEDERICA Titration Protocol 1 MILLIUNIT/MIN Lactated Ringer's 1,000 mls @ 100 mls/hr 07/04/17 09:00 07/04/17 22:50 Lr IV 0 mls/hr .Q10H FEDERICA Infusion Metoclopramide HCl 10 mg 07/03/17 20:13 07/04/17 02:07 Reglan Inj IVP 10 mg Q6HR PRN Administration Nausea / Vomiting Ondansetron HCl 4 mg 07/04/17 02:35 07/04/17 13:03 Zofran Inj IVP 4 mg Q4HR PRN Administration Nausea / Vomiting Ranitidine HCl 150 mg 07/04/17 09:00 07/04/17 10:54 Zantac PO 150 mg DAILY FEDERICA Administration Simethicone 80 mg 07/04/17 14:00 07/05/17 06:27 Mylicon PO 80 mg TID FEDERICA Administration Sodium Chloride 10 ml 07/03/17 10:07 07/03/17 18:14 Normal Saline Flush 0.9% IVP 10 ml PRN PRN Administration NEEDED PER PROVIDER ORDERS Sodium Chloride 10 ml 07/03/17 14:00 07/05/17 03:30 Normal Saline Flush 0.9% IVP 20 ml Q8HR FEDERICA Administration Sodium Chloride 10 ml 07/04/17 08:42 07/04/17 13:03 Normal Saline Flush 0.9% IVP 10 ml PRN PRN Administration NEEDED PER PROVIDER ORDERS Sodium Chloride 10 ml 07/04/17 14:00 07/04/17 11:51 Normal Saline Flush 0.9% IVP 10 ml Q8HR FEDERICA Administration - Physical Exam Wound/Incisions: positive: Dressing dry and intact, No drainage General Appearance: positive: No acute distress, Alert Respiratory: positive: Chest non-tender, No respiratory distress, Breath sounds nml Cardiovascular: positive: Regular rate & rhythm, No murmur, No gallop Abdomen: positive: Nml bowel sounds, No distention, Tenderness (at uterus), Mass (u-2) Back: negative: CVA tenderness (R), CVA tenderness (L) Skin: positive: Color nml, No rash, Warm, Dry Extremities: positive: Other (reflexes 3, no clonus). negative: Calf tenderness , Crescencio's sign/cords Neurologic/Psychiatric: positive: Oriented x3
[2017-07-05] MEDS: LACTULOSE 10 GM /15 ML UDC PO SCH (09:02)
[2017-07-05] MEDS: DOCUSATE SODIUM 100 MG CAPSULE PO SCH ×2 (09:03→19:51)
[2017-07-05] MEDS: IBUPROFEN 800 MG TABLET PO PRN ×2 (09:04→19:51)
[2017-07-05] MEDS: LACTATED RINGERS 1,000 ML IV SCH ×3 (09:18→09:20)
[2017-07-05] MEDS: oxyCODONE 5 MG TABLET PO PRN ×4 (10:16→23:50)
[2017-07-05] MEDS: OXYTOCIN/SODIUM CHLORIDE 250 ML IV SCH (12:38)
[2017-07-06] MEDS: IBUPROFEN 800 MG TABLET PO PRN ×2 (02:09→09:27)
[2017-07-06] MEDS: ACETAMINOPHEN 500 MG TABLET PO SCH (04:33)
[2017-07-06] MEDS: oxyCODONE 5 MG TABLET PO PRN ×2 (04:33→09:27)
[2017-07-06 05:58] LABS: BASOPHILS % (AUTO) 0.3 %; EOSINOPHILS # (AUTO) 0.2 10^3/uL (0.0-0.7); EOSINOPHILS % (AUTO) 2.5 %; HCT - HEMATOCRIT 25.4 % (37.0-47.0); HGB - HEMOGLOBIN 8.1 g/dL (12.0-16.0); LYMPHOCYTES # (AUTO) 1.6 10^3/uL (1.5-3.5); LYMPHOCYTES % (AUTO) 21.5 %; MEAN CORPUSCULAR HEMOGLOBIN 25.3 pg (27.0-31.0); MEAN CORPUSCULAR HGB CONC 31.8 g/dL (32.0-36.0); MEAN CORPUSCULAR VOLUME 79.8 fL (81.0-99.0); MEAN PLATELET VOLUME 8.2 fL (7.9-10.8); MONOCYTES # (AUTO) 0.5 10^3/uL (0.0-1.0); NEUTROPHILS # (AUTO) 5.3 10^3/uL (1.5-6.6); NEUTROPHILS % (AUTO) 69.7 %; RED BLOOD COUNT 3.18 10^6/uL (4.20-5.40); RED CELL DISTRIBUTION WIDTH 15.1 % (12.0-15.0); UNCORRECTED WHITE BLOOD COUNT 7.6 x10^3/uL; WHITE BLOOD COUNT 7.6 x10^3/uL (4.8-10.8)
[2017-07-06] MEDS: SODIUM CHLORIDE FLUSH 0.9% 10 ML SYRINGE IVP SCH ×2 (06:40)
[2017-07-06 08:18] VITALS: BP 145/72
[2017-07-06] MEDS: LACTULOSE 10 GM /15 ML UDC PO SCH (09:26)
[2017-07-06] MEDS: DOCUSATE SODIUM 100 MG CAPSULE PO SCH (09:26)
[2017-07-06] MEDS: SIMETHICONE CHEW 80 MG TABLET PO SCH (09:27)
--- NOTE | 2017-07-06 12:59 | PROVIDER PROGRESS NOTE ---
Subjective - General Admit Date: 07/03/17 Procedure Date: 07/04/17 Post Op Days: 2 Procedure Performed: PLTC/S bilateral Salpingectomy - Review of Systems Wound/Incisions: positive: Dressing dry and intact, No drainage General: positive: No symptoms (Pain 3/10. pt is conceerned about Narcotics and constipation. Breast feeding. Desires to go home.) Gastrointestinal: positive: Flatus. negative: Nausea, Vomiting Genitourinary: positive: No symptoms (voiding) Objective - Patient Data Reviewed Vital Signs: Yes Vital Signs: Vital Signs x48h Temp Pulse Resp BP Pulse Ox 07/06/17 08:11 36.2 C L 71 18 145/72 H 99 Intake & Output: Intake and Output Totals x24h 07/04/17 07/05/17 07/06/17 23:59 23:59 23:59 Intake Total 3691.667 388.333 Output Total 1150 3325 Balance 2541.667 -2936.667 - Lab Results Lab Results: 07/06/17 05:14 Other Lab Results: Lab Results x24hrs 07/06/17 Range/Units 05:14 WBC 7.6 (4.8-10.8) x10^3/uL RBC 3.18 L (4.20-5.40) 10^6/uL Hgb 8.1 L (12.0-16.0) g/dL Hct 25.4 L (37.0-47.0) % MCV 79.8 L (81.0-99.0) fL MCH 25.3 L (27.0-31.0) pg MCHC 31.8 L (32.0-36.0) g/dL RDW 15.1 H (12.0-15.0) % Plt Count 202 (130-450) 10^3/uL MPV 8.2 (7.9-10.8) fL Neut # 5.3 (1.5-6.6) 10^3/uL Lymph # 1.6 (1.5-3.5) 10^3/uL [place] # 0.5 (0.0-1.0) 10^3/uL Eos # 0.2 (0.0-0.7) 10^3/uL Baso # 0.0 (0.0-0.1) 10^3/uL Absolute Nucleated RBC 0.00 x10^3/uL Nucleated RBC % 0.0 /100WBC - Current Medications Current Medications: Current Medications Generic Name Dose Route Start Last Admin Trade Name Freq PRN Reason Stop Dose Admin Acetaminophen 650 mg 07/03/17 11:00 07/05/17 12:38 Tylenol PO Not Given Q6H FEDERICA Acetaminophen 1,000 mg 07/04/17 09:00 07/06/17 04:33 Tylenol PO 1,000 mg Q8H FEDERICA Administration Diphenhydramine HCl 25 mg 07/04/17 08:42 07/04/17 19:42 Benadryl PO 25 mg Q6H PRN Administration ITCHING Docusate Sodium 100 mg 07/04/17 09:00 07/06/17 09:26 Colace 100mg Capsule PO 100 mg BID FEDERICA Administration Fentanyl 50 mcg 07/03/17 10:31 07/03/17 13:01 Fentanyl IVP 50 mcg Q1H PRN Administration PAIN Oxytocin/Sodium Chloride 250 mls @ 1 mls/hr 07/03/17 16:00 07/05/17 12:38 Pitocin/Sodium Chloride IV Not Given TITR FEDERICA Protocol 1 MILLIUNIT/MIN Lactated Ringer's 1,000 mls @ 100 mls/hr 07/04/17 09:00 07/05/17 23:33 Lr IV Infused .Q10H FEDERICA Infusion Ibuprofen 800 mg 07/05/17 20:27 07/06/17 09:27 Motrin PO 800 mg Q6HR PRN Administration PAIN Lactulose 10 gm 07/05/17 09:00 07/06/17 09:26 Enulose PO 10 gm DAILY FEDERICA Administration Metoclopramide HCl 10 mg 07/03/17 20:13 07/04/17 02:07 Reglan Inj IVP 10 mg Q6HR PRN Administration Nausea / Vomiting Ondansetron HCl 4 mg 07/04/17 02:35 07/04/17 13:03 Zofran Inj IVP 4 mg Q4HR PRN Administration Nausea / Vomiting Oxycodone HCl 5 - 10 mg 07/05/17 20:27 07/06/17 09:27 Roxicodone PO 5 mg Q4HR PRN Administration PAIN Ranitidine HCl 150 mg 07/04/17 09:00 07/06/17 09:26 Zantac PO 150 mg DAILY FEDERICA Administration Simethicone 80 mg 07/04/17 14:00 07/06/17 09:27 Mylicon PO 80 mg TID FEDERICA Administration Sodium Chloride 10 ml 07/03/17 10:07 07/03/17 18:14 Normal Saline Flush 0.9% IVP 10 ml PRN PRN Administration NEEDED PER PROVIDER ORDERS Sodium Chloride 10 ml 07/03/17 14:00 07/06/17 06:40 Normal Saline Flush 0.9% IVP Not Given Q8HR FEDERICA Sodium Chloride 10 ml 07/04/17 08:42 07/04/17 13:03 Normal Saline Flush 0.9% IVP 10 ml PRN PRN Administration NEEDED PER PROVIDER ORDERS Sodium Chloride 10 ml 07/04/17 14:00 07/06/17 06:40 Normal Saline Flush 0.9% IVP Not Given Q8HR FEDERICA - Physical Exam Wound/Incisions: positive: Dressing dry and intact General Appearance: positive: No acute distress, Alert Abdomen: positive: Non-tender, Mass (U-3) Back: negative: CVA tenderness (R), CVA tenderness (L) Skin: positive: Color nml, No rash, Warm Extremities: negative: Calf tenderness, Crescencio's sign/cords Neurologic/Psychiatric: positive: Oriented x3 Impression/Plan - Problem List Problem List: S/P PLTC/S for arrest of decent. Failed induction. Send home. Reviewed mastitis, infection Discharge meds Oxycodone 5mg Moterin 800MG Colace 100mg Iron 325 mg RTC tuesday for Wound Vac removal
--- NOTE | 2017-07-06 13:10 | Discharge Plan ---
Discharge Plan Disposition: 01 Home, Self Care Condition: Good Diet: Regular Activity Restrictions: Pelvic rest 6 weeks Shower Restrictions: Yes (protect Wound VAC) Driving Restrictions: Yes (while taking narcotics) Weight Bearing: Full Weight No Smoking: If you smoke, Please STOP! Call for help.
--- NOTE | 2017-07-06 15:15 | Labor Flowsheet ---
Labor Flowsheet Datetime Report Generated by CPN: 07/06/2017 15:15 Datetime: 07/04/2017 06:19 Stage of : Labor UTERINE ACTIVITY Monitor Mode: External Frequency (min): rare Quality: Mild Duration (sec): 70 Resting Tone (Palpate): Relaxed ASSESSMENT A Monitor Mode: External US FHR Baseline Rate : 125 Variability: Moderate 6-25 bpm Accelerations: 15X15 Decelerations: None Category: Category I PAIN Pain Scale: 0 Pain Presence: None/Denies Pain Type: N/A COMMUNICATION Communication: To the OR LaborFlag: Labor Datetime: 07/04/2017 06:10 VITAL SIGNS NBP Sys/Rekha/Mean (mmHg): 133 : 81 : 92 Pulse: 90 Datetime: 07/04/2017 05:45 Temperature (C): 36.5 Temperature Route: Oral Datetime: 07/04/2017 05:29 SpO2 (%): 98 Datetime: 07/04/2017 05:15 Monitor Interventions for UA: [place] Adjusted Datetime: 07/04/2017 05:00 Actions for Decelerations: Side to Side VAGINAL EXAM Dilatation (cm): 7.0 (Annotations: No cervical change. Consenting for and bilateral tuba l ligation) Effacement (%): 50 Station: -4 Exam by: Dr Logan Membrane Status: Bulging MEDICATIONS Pitocin (milliunits): Discontinued PATIENT CARE IV/Blood Work: Lab called to run type and screen from hold tube Datetime: 07/04/2017 03:15 Patient Position/Activity: High Fowlers Datetime: 07/04/2017 02:45 Pain Relief Measures: Epidural Given Pain Coping: Talking Through Contractions Datetime: 07/04/2017 02:30 Respirations: 20 Monitor Interventions for FHR: Ultrasound Adjusted Vaginal Bleeding: Normal Show Cervix, Consistency: Soft Cervix, Position: Midposition Presentation 'A': Cephalic Headache: Frontal (Annotations: After throwing up) Antiemetics/Antacids: Zofran (mg) @ (Annotations: An extra 4 mg Zofran given for continued emisis) Comfort Measures: Breathing/Relaxation; Family Support; Buggy Driver Support Provider Reviewed Strip: Yes Anesthesia Level Check: T10- Umbilicus Datetime: 07/04/2017 02:00 Nausea/Vomiting: Present (Annotations: Medicated with Zofran 4 mg and Reglan 10 mg) Datetime: 07/04/2017 00:15 Procedures: Luis catheter placed Hygiene: Danna Care I/O Interventions: Luis Cath Inserted (Annotations: 16 fr) ANESTHESIA Anesthesia Plans: Epidural Datetime: 07/04/2017 00:00 TEACHING Pain Management: Epidural Datetime: 07/03/2017 23:30 MATERNAL ASSESSMENT Level of Consciousness: Fully Conscious Datetime: 07/03/2017 22:00 Vital Sign Comments: Datetime: 07/03/2017 21:45 Pain Location: Abdomen Datetime: 07/03/2017 21:30 FHR Baseline Changes: No Baseline Change Datetime: 07/03/2017 21:00 Pain Assessment Comments: Nausea with vomiting Datetime: 07/03/2017 20:30 Pattern: Normal: <= 5 Contractions in 10 Minutes Datetime: 07/03/2017 19:58 Patient Care Comments: Peanut ball and exagerated christian Datetime: 07/03/2017 19:30 DTR's/Clonus: DTRs 3+; 1 Beat Clonus Breath Sounds, Left: Clear and Equal Breath Sounds, Right: Clear and Equal RUQ Epigastric Pain: Denies Oxygen Method: Room Air Datetime: 07/03/2017 19:11 Epidural Procedure: Test Dose Epidural Procedure Other: Single Dose Anesthesia Comments: one single dose only after test dose Datetime: 07/03/2017 18:48 PROCEDURE TIME OUT Procedure Verify: Correct Patient Identity; Correct Side and Site are Marked; Accurate Procedure Co nsent Form; Agreement on Procedure to be Done; Correct Patient Position Epidural Positioning: Sitting Datetime: 07/03/2017 17:17 Contraction Comments: pt talking thru ctx, rating pain /10 with ctx Datetime: 07/03/2017 16:18 Pitocin Checklist: At Least 1 Acceleration of 15 bpm x 15 Seconds in 30 Minutes or Adequate Variabi lity; No More than 1 Late Deceleration Occurred in Past 30 Minutes; No More than 2 Variable Decelerat ions > 60 Seconds in Duration and decreasing >60 bpm in 30 minutes; No More than 5 Uterine Contractio ns in 10 Minutes for any 20 Minute Interval; Uterus Palpates Soft between Contractions
--- NOTE | 2017-07-07 06:17 | DISCHARGE SUMMARY ---
DATE OF ADMISSION: 07/03/2017 DATE OF DISCHARGE: 07/06/2017 ADMITTING DIAGNOSES 1. Term cyesis. 2. Gestational hypertension. 3. Failed induction. DISCHARGE DIAGNOSES 1. Gestational hypertension. 2. Term cyesis. 3. Failed induction. 4. Arrest of dilatation. PROCEDURES 1. Luis bulb cervical ripening. 2. Pitocin augmentation. 3. Primary low transverse section with bilateral salpingectomy. PRESENTING HISTORY: The patient is a 37-year-old G2, P1 female who presents following a failed induct ion from the last week. She initially was admitted and given Cervidil for cervical ripening, then Cyt otec, then Pit, then Cervidil again, as well as a Luis bulb without further progress. Because her bl ood pressures remained stable and the was noted to be doing well on her monitoring, it was dec ided to let her go home for the weekend to return the following Tuesday for cervical ripening and anot her attempt at induction. LABORATORIES: Her CBC on admission showed a white count of 9.3, hemoglobin 9.9, hematocrit was 30.6, platelets were 228. The first day postoperatively, her hemoglobin fell to 8.0. Her platelets were 195 . On the , her white count is 7.6, hemoglobin is 8.1, hematocrit was 25.4, platelets were 202. On admission, her uric acid was 6.4, AST was 22, protein creatinine ratio was 0.2. HOSPITAL COURSE: The patient was readmitted, a Luis bulb was replaced and inflated to 70 mL of steri le water. This was monitored and it came out spontaneously, at which time her cervical check showed h er to be 5.5 cm. At this time, Pitocin was initiated because of lack of contractions. She advanced he r cervix to roughly 7 cm, but the head never descended from a -4. She had Pit which was running at 20 units with contractions every 3 minutes. She had an epidural for labor analgesia. Because of her lac k of progress, the inability to rupture membranes because of the very high station, it was decided to proceed on with section. This was performed without difficulty. Her blood loss during surge ry was roughly 1000 mL. Her bladder and bowel function returned, she was tolerating a regular diet, o n oral pain medications and she is requesting to go home. She is being discharged to home on oxycodon e 5 mg q.4-6, Motrin 800 mg q.8, Colace 100 mg b.i.d. p.r.n. constipation, and iron 325 mg p.o. daily . She is instructed that should she develop mastitis that she should contact the clinic sooner. She i s also instructed to follow up this coming Tuesday for removal of her wound VAC. JOB #: [id number] EXT JOB #:[id number]
== END 2017-07-06 14:00 | disposition home or self-care (01) | DRG 766 ==
LOC: WFO 08:12 → FBP 08:14 → WFO 09:59 → FBP 10:00 → OBSVTOIN 15:24
PROVIDERS: ADMIT Obstetrics & Gynecology; ATTEND Obstetrics & Gynecology
PROC: 0UT70ZZ Resection of Bilateral Fallopian Tubes, Open Approach (ICD-10-PCS; 2017-07-04)
PROC: 10D00Z1 Extraction of Products of Conception, Low, Open Approach (ICD-10-PCS; principal; 2017-07-04 06:04)
DX: O13.3 Gestational [pregnancy-induced] hypertension without significant proteinuria, third trimester (principal); O64.0XX0 Obstructed labor due to incomplete rotation of fetal head, not applicable or unspecified; O69.89X0 Labor and delivery complicated by other cord complications, not applicable or unspecified; O61.0 Failed medical induction of labor; Z3A.39 39 weeks gestation of pregnancy; Z37.0 Single live birth; Z30.2 Encounter for sterilization
CPT/HCPCS: 36415; 59025; 59200; 82570; 83615; 84156; 84450; 84550; 85025; 86850; 86900; 86901; 88302; 96374; 96375

== ENCOUNTER 2017-09-24 12:56 | Emergency (ER) | payer OTHER ==
--- NOTE | 2017-09-24 13:13 | ED Physician Documentation ---
PD HPI URI - Stated complaint Stated Complaint: COUGH/BODY ACHES - Chief complaint Chief Complaint: Resp - History obtained from History obtained from: Patient - History of Present Illness Timing - onset: How many days ago (10 days of URI symptoms and aches, with worse cough and now productive with feeling more feverish the past couple of days.) Timing duration: Days (10) Timing details: Abrupt onset, Still present Associated symptoms: Fever, Chills, Dry cough, Productive cough (now for 2 days) , Dyspnea. No: Swollen nodes, Hemoptysis, Chest pain, NVD Contributing factors: COPD / asthma. No: Sick contact, Travel, Immunocompromised Worsened by: Activity, Breathing Similar symptoms before: Has not had sx before Recently seen: Not recently seen Review of Systems Constitutional: reports: Fever, Chills, Myalgias Nose: reports: Congestion. denies: Rhinorrhea / runny nose, Epistaxis Throat: reports: Sore throat Cardiac: reports: Chest pain / pressure (hurting with cough) Respiratory: reports: Dyspnea, Cough GI: denies: Abdominal Pain, Nausea, Vomiting, Diarrhea Skin: denies: Rash, Lesions Musculoskeletal: denies: Neck pain, Back pain Neurologic: reports: Generalized weakness. denies: Focal weakness, Numbness Endocrine: denies: Easy bruising / bleeding Immunocompromised: denies: Immunocompromised, Chemotherapy PD PAST MEDICAL HISTORY - Past Medical History Cardiovascular: None Respiratory: None Neuro: None Endocrine/Autoimmune: None - Present Medications Home Medications: Ambulatory Orders Medication Instructions Recorded Confirmed Albuterol Sulf [Ventolin Hfa 1 - 2 puffs INH Q4HR PRN #1 inhaler 09/24/17 Inhaler] Benzonatate [Tessalon] 100 mg PO TID PRN #25 capsule 09/24/17 Cephalexin [Keflex] 500 mg PO TID #20 capsule 09/24/17 Dexamethasone [Decadron] 4 mg PO DAILY #5 tablet 09/24/17 - Allergies Allergies/Adverse Reactions: Allergies Allergy/AdvReac Type Severity Reaction Status Date / Time No Known Drug Allergies Allergy Verified 09/24/17 13:03 - Social History Smoking Status: Never smoker PD ED PE NORMAL - Vitals Vital signs reviewed: Yes - General General: Alert and oriented X 3, No acute distress, Well developed/nourished - HEENT HEENT: Ears normal, Pharynx benign - Neck Neck: Supple, no meningeal sign, No adenopathy - Cardiac Cardiac: RRR, No murmur - Respiratory Respiratory: Clear bilaterally - Abdomen Abdomen: Soft, Non tender - Back Back: No CVA TTP - Derm Derm: Normal color, Warm and dry - Extremities Extremities: No deformity, No tenderness to palpate, Normal ROM s pain, No edema , No calf tenderness / cord - Neuro Neuro: Alert and oriented X 3, No motor deficit, Normal speech Results - Vitals Vitals: Oxygen O2 Source Room air PD MEDICAL DECISION MAKING - ED course Complexity details: reviewed old records, considered differential (has had URI symptoms for longer duration and now worse productive cough which nance sconcern for bacterial secondary infection. ), d/w patient Departure - Departure Disposition: 01 Home, Self Care Clinical Impression: Bronchitis Upper respiratory infection Qualifiers: URI type: unspecified URI Qualified Code(s): J06.9 - Acute upper respiratory infection, unspecified Condition: Stable Record reviewed to determine appropriate education?: Yes Instructions: ED Upper Resp Infec Abx Tx Follow-Up: [facility] [Provider Group] Prescriptions: Albuterol Sulf [Ventolin Hfa Inhaler] 1 - 2 puffs INH Q4HR PRN #1 inhaler PRN Reason: Shortness Of Air/Wheezing Benzonatate [Tessalon] 100 mg PO TID PRN #25 capsule PRN Reason: Cough Cephalexin [Keflex] 500 mg PO TID #20 capsule Dexamethasone [Decadron] 4 mg PO DAILY #5 tablet Comments: Drink lots of fluids. Tylenol or ibuprofen if needed for fevers and pains. Given the duration and symptoms of your cough and fever, there may now be a secondary bacterial component and so we will treated with cephalexin as directed. Otherwise treat the symptoms with albuterol inhaler 2 puffs 4 times a day and extra times as needed. Decadron steroid for inflammation of the bronchioles daily for another 5 days. Use Tessalon if needed for cough. This hopefully will be improving over the next few days. Discharge Date/Time: 09/24/17 14:34
[2017-09-24] MEDS ORDERED: BENZONATATE 100 MG CAPSULE PO STA (13:31)
[2017-09-24] MEDS ORDERED: DEXAMETHASONE 10 MG/ML VIAL PO STA (13:31)
[2017-09-24] MEDS ORDERED: ALBUTEROL NEB 2.5 MG/3 ML INH STA (13:31)
[2017-09-24 13:52] VITALS: BP 118/85
[2017-09-24] MEDS ORDERED: CHERRY SYRUP 10 ML UDC PO ONE (13:53)
== END 2017-09-24 14:34 | disposition home or self-care (01) ==
LOC: ED 12:56
DX: J40 Bronchitis, not specified as acute or chronic (principal); J06.9 Acute upper respiratory infection, unspecified
CPT/HCPCS: 94640; 99283; A9270; J7613

== ENCOUNTER 2018-01-24 17:45 | Emergency (ER) | payer OTHER ==
[2018-01-24 18:02] VITALS: BP 126/81
[2018-01-24] MEDS ORDERED: DEXAMETHASONE 10 MG/ML VIAL PO STA (18:27)
--- NOTE | 2018-01-24 18:27 | ED Physician Documentation ---
PD HPI HEENT - Stated complaint Stated Complaint: LT EAR PX - Chief complaint Chief Complaint: Heent - History obtained from History obtained from: Patient - History of Present Illness Timing - onset: How many weeks ago (2) Timing - duration: Weeks (2) Timing - details: Gradual onset, Still present Location: Left ear, Sinuses Improves: Medication Worsens: Everything Associated symptoms: Congestion, Rhinorrhea, Headache, Cough Similar symptoms before: Diagnosis (sinusitis) Recently seen: Not recently seen - Additional information Additional information: 37-year-old female with 2 small children who have middle ear infection has developed pain in her left ear. She has had a cough for 2 weeks productive of yellow and green phlegm she has had nasal congestion and sinus pain and has been on Sudafed without improvement. She states that usually if she gets a sinus infection like this it will resolve itself within this period of time. She has developed pain in her left ear yesterday and she can feel fullness in the right ear beginning to develop as well. Review of Systems Constitutional: denies: Fever Eyes: denies: Decreased vision Ears: reports: Ear pain Nose: reports: Rhinorrhea / runny nose, Congestion, Sinus pressure / pain Throat: denies: Sore throat Cardiac: denies: Chest pain / pressure Respiratory: reports: Cough. denies: Dyspnea GI: denies: Vomiting PD PAST MEDICAL HISTORY - Past Medical History Cardiovascular: None Respiratory: None Endocrine/Autoimmune: None - Past Surgical History Past Surgical History: Yes General: Appendectomy /BELLOWS TESTER: section HEENT: Tonsil/Adenoidectomy - Present Medications Home Medications: Ambulatory Orders Medication Instructions Recorded Confirmed Azithromycin [Zithromax] 250 mg PO DAILY #6 tablet 01/24/18 - Allergies Allergies/Adverse Reactions: Allergies Allergy/AdvReac Type Severity Reaction Status Date / Time No Known Drug Allergies Allergy Verified 09/24/17 13:03 - Social History Does the pt smoke?: No Smoking Status: Never smoker Does the pt drink ETOH?: Yes Does the pt have substance abuse?: No - Immunizations Immunizations are current?: Yes PD ED PE NORMAL - Vitals Vital signs reviewed: Yes (normal ) - General General: Alert and oriented X 3, No acute distress, Well developed/nourished - HEENT HEENT: Atraumatic, PERRL, EOMI, Other (left TM is inflamed with rounding of the landmarks and buldging. ) - Neck Neck: Supple, no meningeal sign, No bony TTP - Cardiac Cardiac: RRR, No murmur - Respiratory Respiratory: No respiratory distress, Clear bilaterally - Abdomen Abdomen: Soft, Non tender - Back Back: No CVA TTP, No spinal TTP - Derm Derm: Normal color, Warm and dry, No rash - Extremities Extremities: No deformity, No edema - Neuro Neuro: No motor deficit, No sensory deficit Eye Opening: Spontaneous Motor: Obeys Commands Verbal: Oriented GCS Score: 15 - Psych Psych: Normal mood, Normal affect Results - Vitals Vitals: Vital Signs - 24 hr 01/24/18 17:59 Temperature 37.0 C Heart Rate 72 Respiratory 16 Rate Blood Pressure 126/81 H O2 Saturation 100 Oxygen O2 Source Room air PD MEDICAL DECISION MAKING - ED course Complexity details: considered differential, d/w patient ED course: 37-year-old female has developed left ear pain after 2 weeks of a cough and has otitis media on examination. She is administered dexamethasone [address] her on some azithromycin. - Sepsis Event Vital Signs: Vital Signs - 24 hr 01/24/18 17:59 Temperature 37.0 C Heart Rate 72 Respiratory 16 Rate Blood Pressure 126/81 H O2 Saturation 100 Oxygen O2 Source Room air Departure - Departure Disposition: 01 Home, Self Care Clinical Impression: Otitis media Qualifiers: Otitis media type: suppurative Chronicity: acute Laterality: left Recurrence: not specified as recurrent Spontaneous tympanic membrane rupture: without spontaneous rupture Qualified Code(s): H66.002 - Acute suppurative otitis media without spontaneous rupture of ear drum, left ear Condition: Stable Instructions: ED Otitis Media Acute Adult Follow-Up: [facility] [Provider Group] Prescriptions: Azithromycin [Zithromax] 250 mg PO DAILY #6 tablet
== END 2018-01-24 18:37 | disposition home or self-care (01) ==
LOC: ED 17:45
DX: H66.002 Acute suppurative otitis media without spontaneous rupture of ear drum, left ear (principal)
CPT/HCPCS: 99283